=== PATIENT | female | born 1960 | race American Indian/Alaskan Native ===

== ENCOUNTER 2017-05-21 19:05 | Emergency (ER) | payer MEDICARE ==
[2017-05-21 20:18] LABS: Bacteria,Urine 1+ /HPF (Negative); Bilirubin,Urine NEG (Negative); Blood,Urine NEG (Negative); Color,Urine Straw (Yellow); Protein,Urine <15 mg/dL mg/dL (Negative); Urobilinogen,Urine < 2.0 mg/dL (<2.0); WBC,Urine < 1.0 /HPF (0.0-6.0)
[2017-05-21 20:23] LABS: Hematocrit 42.2 % (30.3-42.9); Hemoglobin 13.5 gm/dl (10.1-14.3); Mean Corpuscular HGB Conc 32 % (30-34); Mean Corpuscular Hemoglobin 27 pg (28-32); Mean Corpuscular Volume 85 fl (79-97); Platelet Count 262 K/mm3 (140-440); Red Blood Count 4.94 M/mm3 (3.65-5.03); Red Cell Distribution Width 14.9 % (13.2-15.2)
[2017-05-21 20:24] LABS: Amphetamine Screen,Urine PRESUMPTIVE NEGATIVE; Benzodiazepines Screen,Urine PRESUMPTIVE NEGATIVE; Cannabinoid Screen,Urine PRESUMPTIVE NEGATIVE; Cocaine Screen,Urine PRESUMPTIVE NEGATIVE; Methadone Screen,Urine PRESUMPTIVE NEGATIVE; Opiate Screen,Urine PRESUMPTIVE NEGATIVE
[2017-05-21 20:35] LABS: Alanine Aminotransferase 21 units/L (7-56); Albumin 4.9 g/dL (3.9-5); BUN/Creatinine Ratio 18; Blood Urea Nitrogen 9 mg/dL (7-17); Calcium 10.2 mg/dL (8.4-10.2); Hemolysis Index 10; Lipase 116 units/L (13-60)
[2017-05-21 20:36] LABS: Bilirubin,Direct < 0.2 mg/dL (0-0.2)
[2017-05-21] MEDS ORDERED: ZOFRAN IV ONE (20:44)
--- NOTE | 2017-05-21 20:52 | Emergency Department Report ---
HPI - General Chief Complaint: Nausea/Vomiting/Diarrhea Time Seen by Provider: 05/21/17 19:40 - HPI HPI: 57-year-old female presents to the emergency department by EMS with what appears to be alcohol intoxication. The original complaint and/or call was for nausea and/or vomiting. The patient is currently staying with a "friend" at their house. When EMS arrived there for a sick call there were told that both the patient and the "friend" have been drinking consistently for the past 2-3 days. Patient says that she has a history of a stomach ulcer and complained of some stomach pain. She did not take anything or receive anything for her symptoms prior to presentation. She denies having a primary care physician. ED Past Medical Hx - Past Medical History Previous Medical History?: Yes Hx Hypertension: Yes - Social History Smoking Status: Never Smoker Substance Use Type: Alcohol ED Review of Systems ROS: Stated complaint: NAUSEA Other details as noted in HPI Comment: All other systems reviewed and negative Constitutional: denies: chills, fever Eyes: denies: eye pain, eye discharge, vision change ENT: denies: ear pain, throat pain Respiratory: denies: cough, shortness of breath, wheezing Cardiovascular: denies: chest pain, palpitations Gastrointestinal: abdominal pain, nausea, vomiting Genitourinary: denies: urgency, dysuria, discharge Musculoskeletal: denies: back pain, joint swelling, arthralgia Skin: denies: rash, lesions Neurological: denies: headache, weakness, paresthesias Physical Exam - Physical Exam Vital Signs: Vital Signs 05/21/17 05/21/17 05/21/17 19:30 19:40 19:41 Temperature 98.3 F 98.3 F Pulse Rate 90 95 H Respiratory 18 Rate Blood Pressure 137/85 Blood Pressure 137/85 [Right] O2 Sat by Pulse 95 95 95 Oximetry 05/21/17 05/21/17 19:45 19:49 Temperature Pulse Rate 90 Respiratory 21 18 Rate Blood Pressure 137/85 Blood Pressure [Right] O2 Sat by Pulse 94 96 Oximetry Physical Exam: GENERAL: The patient is well-developed well-nourished. HENT: Normocephalic. Atraumatic. Patient has moist mucous membranes. EYES: Extraocular motions are intact. Pupils equal reactive to light bilaterally. NECK: Supple. Trachea is midline. CHEST/LUNGS: Clear to auscultation. There is no respiratory distress noted. HEART/CARDIOVASCULAR: Regular. There is no tachycardia. There is no murmur. ABDOMEN: Abdomen is soft. Mild epigastric tenderness to palpation. No guarding or rebound tenderness. Patient has normal bowel sounds. There is no abdominal distention. SKIN: There is no rash. There is no edema. There is no diaphoresis. NEURO: Patient is awake and oriented but does appear intoxicated. The patient is cooperative. The patient has normal speech and gait. MUSCULOSKELETAL: There is no tenderness or deformity. There is no limitation range of motion. There is no evidence of acute injury. ED Course Vital Signs 05/21/17 05/21/17 05/21/17 19:30 19:40 19:41 Temperature 98.3 F 98.3 F Pulse Rate 90 95 H Respiratory 18 Rate Blood Pressure 137/85 Blood Pressure 137/85 [Right] O2 Sat by Pulse 95 95 95 Oximetry 05/21/17 05/21/17 19:45 19:49 Temperature Pulse Rate 90 Respiratory 21 18 Rate Blood Pressure 137/85 Blood Pressure [Right] O2 Sat by Pulse 94 96 Oximetry ED Medical Decision Making - Lab Data Result diagrams: 05/21/17 20:09 05/21/17 20:09 - Radiology Data Radiology results: report reviewed Abdominal x-ray shows nonspecific nonobstructive bowel gas. - Medical Decision Making The patient originally came in with the complaint of nausea and vomiting but through [facility] that she had been having a 2-3 day alcohol binge. She does appear intoxicated but otherwise remains awake and oriented and cooperative. She had a complaint of some mild epigastric tenderness. However other than the blood alcohol level, the labs unremarkable. Abdominal x-ray shows nonspecific nonobstructive bowel gas. The patient did not want any IV placement and therefore did not receive any IV fluid, vitamins. The patient's blood alcohol level was 0.32 at about 8 PM this evening. The patient has been here for about 6 hours and has remained stable throughout that time. Right about now, the patient's blood alcohol level, even with some conservative estimates, should be somewhere around 0.2 to 0.18. There is been no further nausea or vomiting, even without any anti-emetics being given, and she has no complaints of any abdominal pain at this time. The patient's roommate and/or possible significant other, has been bedside for quite a while now and is asking if he can take her home. The patient has been seen ambulatory in the emergency department and appears stable while doing so. For these reasons the patient will be allowed to leave with the roommate who has agreed to get her home safely and take responsibility for her. The patient was given discharge paperwork includes a primary care clinic as well as the [facility] facility in case she would like some assistance with her alcohol abuse. She has been encouraged to return to the emergency Department with any worsening of her symptoms or any acute distress. - Differential Diagnosis Alcohol intoxcation/abuse, pancreatitis, UTI, Viral Syndrome, food poisonin Critical Care Time: No Critical care attestation.: If time is entered above; I have spent that time in minutes in the direct care of this critically ill patient, excluding procedure time. ED Disposition Clinical Impression: Alcohol intoxication Qualifiers: Complication of substance-induced condition: uncomplicated Qualified Code(s): F10.920 - Alcohol use, unspecified with intoxication, uncomplicated Nausea & vomiting Qualifiers: Vomiting type: unspecified Vomiting Intractability: non-intractable Qualified Code(s): R11.2 - Nausea with vomiting, unspecified Disposition: DC-01 TO HOME OR SELFCARE Is pt being admited?: No Condition: Stable Instructions: Alcohol Intoxication (ED), Abuse of Alcohol (ED) Additional Instructions: Please try and avoid further alcohol abuse. I have given you a referral for [facility] for any primary care needs. I have given him a referral for the [facility] in case he needs some assistance with your alcohol abuse. Return to the emergency Department with any worsening of her symptoms or any acute distress. Referrals: [facility] [Outside] - 3-5 Days [facility] [Outside] - 3-5 Days
[2017-05-21 20:59] LABS: Total Cells Counted 100
[2017-05-21 21:00] LABS: RBC Morphology Normal
--- NOTE | 2017-05-21 21:20 | XRay Report ---
FINAL REPORT PROCEDURE: XR ABDOMEN 2V TECHNIQUE: Abdominal series, including supine and upright AP views. HISTORY: Abd pain COMPARISON: No prior studies are available for comparison. FINDINGS: Bowel gas pattern:Intestinal gas is distributed predominantly in nondistended large bowel. Mild degree residual stool is noted.. Masses or calcifications:None . Bony structures:No significant abnormality . Pneumoperitoneum:None . Other:No significant findings . IMPRESSION: Nonspecific intestinal gas pattern..
[2017-05-21] MEDS ORDERED: FOLVITE 1 MG, INFUVITE 10 ML in NACL 0.9% 1000 ML 1,000 ML IV ONE (21:44)
[2017-05-21] MEDS ORDERED: VITAMIN B-1 PO ONE (22:00)
[2017-05-22 00:34] VITALS: BP 111/66
== END 2017-05-22 01:41 | disposition home or self-care (01) ==
LOC: ED 19:05
DX: F10.129 Alcohol abuse with intoxication, unspecified (principal); R11.2 Nausea with vomiting, unspecified; I10 Essential (primary) hypertension
CPT/HCPCS: 36415; 74019; 80048; 80074; 80307; 81001; 83690; 85007; 85025; 99284; G0480; J7030; 80320